=== PATIENT | male | born 1945 | race Caucasian/White ===

== ENCOUNTER 2016-08-17 22:01 | Emergency (ER) | payer OTHER, MEDICAID ==
--- NOTE | 2016-08-17 22:22 | EDPHY ---
H & P HPI/ROS: HPI CHIEF COMPLAINT: Alcohol Intoxication HISTORY OF PRESENT ILLNESS: This patient is a 71-year-old male homeless, daily alcohol use and alcohol abuse, he was found at a bus stop, highly intoxicated with alcohol, he fell forward head strike against concrete. Questionable LOC. Bystanders at the bus stop called 911. It is noted the patient was wearing a very thick hat. Patient denies any complaints however he is highly intoxicated with alcohol. Past Medical History: Varicose veins, daily alcohol use, alcoholism Past Surgical History: Denies significant surgical history Social History: Homeless, daily alcohol use denies illicit drugs or tobacco. Family History: Noncontributory ROS REVIEW OF SYSTEMS: A comprehensive 10 point review of systems is otherwise negative aside from elements mentioned in the history of present illness. Exam Constitutional Intoxicated, triage nursing summary reviewed, vital signs reviewed, Sleepy, smells of alcohol Eyes normal conjunctivae and sclera, horizontal beating nystagmus consistent acute alcohol intoxication, otherwise pupils equal and react to light HENT normal inspection, atraumatic, moist mucus membranes, no epistaxis, neck supple/ no meningismus, no raccoon eyes. Respiratory clear to auscultation bilaterally, normal breath sounds, no respiratory distress, no wheezing. Cardiovascular rate normal, regular rhythm, no murmur, no edema, distal pulses normal. Gastrointestinal soft, non-tender, no rebound, no guarding, normal bowel sounds, no distension, no pulsatile mass. Genitourinary no CVA tenderness. Musculoskeletal no midline vertebral tenderness, full range of motion, no calf swelling, no tenderness of extremities, no meningismus, good pulses, neurovascularly intact. Skin pink, warm, & dry, no rash, skin atraumatic. Neurologic sleepy, intoxicated with alcohol,, alert and oriented x 3, AAOx3, moves all 4 extremities equally, motor intact, sensory intact, CN II-XII intact , , normal vision, normal speech. Psychiatric normal mood/affect. Heme/Lymph/Immune no lymphadenopathy. Differential Diagnosis: Includes but is not limited to in a particular order acute alcohol intoxication, alcohol abuse, dehydration, electrolyte abnormality , nausea vomiting from acute alcohol intoxication Medical Decision Making: patient had a CT scan of his head to rule out significant trauma given that he fell witnessed at a bus stop with head strike as concrete. He is intoxicated alcohol. There is no evidence of significant trauma on exam. Re-evaluation: Breath alcohol is 171. CT scan of the head without IV contrast The results of the study are negative for acute traumatic injury The study was read by Dr. Aldrich. I viewed the images myself on the PACS system. 2325: patient ambulated well throughout the emergency room. PO Challenged well without difficulty. Patient is resting comfortably. CT reviewed no evidence of acute trauma. Patient is safe for discharge with the emergency room. Source: Patient, EMS - Medical/Surgical History Hx Asthma: No Hx Chronic Respiratory Disease: No Hx Diabetes: No Hx Cardiac Disease: No Hx Renal Disease: No Hx Cirrhosis: No Hx Alcoholism: Yes Hx HIV/AIDS: No Hx Splenectomy or Spleen Trauma: No Other PMH: NOT ON PSYCH MEDS: ABILIFY, LAMICTAL. ETOH - Social History Smoking Status: Current every day smoker Constitutional: Initial Vital Signs Temperature (C) 36.3 C 08/17/16 22:39 Heart Rate 72 08/17/16 22:39 Respiratory Rate 18 08/17/16 22:39 Blood Pressure 146/100 H 08/17/16 22:39 O2 Sat (%) 95 08/17/16 22:39 O2 Delivery Mode Room Air Allergies/Adverse Reactions: Penicillins Allergy (Verified 08/17/16 22:38) Home Medications: Medication Instructions Recorded Miscellaneous Medical Supply [NO 03/19/13 HOME MED[facility]] Departure - Departure Disposition: Home, Routine, Self-Care Clinical Impression: Alcoholic intoxication Qualifiers: Complication of substance-induced condition: uncomplicated Qualifier Code: ( F10.120) Alcohol abuse with intoxication, uncomplicated Condition: Good Instructions: Abuse of Alcohol (ED), Alcohol Intoxication (ED) Referrals: Fernando Dexter MD [Primary Care Provider] - As per Instructions
--- NOTE | 2016-08-17 22:59 | CT ---
CT Brain (Without Contrast) at 2235 hours History: EtOH, fall, altered mental status. Comparison: CT December 2015. Technique: Axial computed tomographic images of the brain without contrast. Dose reduction techniques were utilized. Findings: Ventricles, cisterns, and sulci are widened consistent with atrophy. 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 No hydrocephalus, midline shift/herniation, or epidural/subdural hematomas. No acute intraparenchymal hemorrhage or mass effect. Cerebrovascular atherosclerosis. Hypodensities in t he white matter of bilateral cerebral hemispheres. Bone windows demonstrate old nasal bone fractures .. Mild mucosal thickening bilateral ethmoid sinuses. Impression: 1. Moderate atrophy. 2. No acute hemorrhage, hydrocephalus, or mass effect. 3. Cerebrovascular atherosclerosis. 4. 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 No definite acute infarct. 5. Severe microvascular ischemic gliosis. 6. No acute epidural or subdural hematoma. Findings and recommendations discussed with Emergency Department physician, Yovani Rosa MD at 2 255 hour, 08/17/2016. Final report concurs with initial preliminary interpretation.
[2016-08-18 00:01] VITALS: BP 119/75; PULSE 75; RESP 16; TEMP 98.6; O2SAT 90
== END 2016-08-18 00:01 | disposition home or self-care (01) ==
LOC: EDUNIT#
DX: F10.120 Alcohol abuse with intoxication, uncomplicated (principal); F17.200 Nicotine dependence, unspecified, uncomplicated

== ENCOUNTER 2016-08-19 13:17 | Emergency (ER) | payer OTHER, MEDICAID ==
--- NOTE | 2016-08-19 14:42 | EDPHY ---
H & P Time Seen by Provider: 08/19/16 14:23 HPI/ROS: CHIEF COMPLAINT: Toenails 2 long HISTORY OF PRESENT ILLNESS: Has not cut his toenails in over 2 years, came in because they are getting too long and digging into his other toes. REVIEW OF SYSTEMS: No fevers or chills and no redness in the feet. PAST MEDICAL HISTORY: Bipolar disorder, stable. No hallucinations and no suicidal or homicidal ideation Social history: Homeless. General Appearance: Alert and conversant, cooperative. Patient's great toenail is 3 cm long on each toe extending past the distal portion of the nail bed. There is no evidence of cellulitis. No lymphangitis, no redness or drainage, there is a abrasion on the medial surface of the right 2nd toe with a nail is contacting. Emergency Department course/MDM: I used emergency department double action bolt cutters to trim the patient's toenails. Is not clinically have evidence of paronychia or cellulitis. He does have extensive toenail fungus. He is referred to Dr. Dexter for Podiatry referral. Smoking Status: Current every day smoker Constitutional: Initial Vital Signs Temperature (C) 36.4 C 08/19/16 13:22 Heart Rate 92 08/19/16 13:22 Respiratory Rate 14 08/19/16 13:22 Blood Pressure 128/78 H 08/19/16 13:22 O2 Sat (%) 96 08/19/16 13:22 O2 Delivery Mode Room Air Home Medications: Medication Instructions Recorded Miscellaneous Medical Supply [NO 03/19/13 HOME MEDS] MDM/Departure - Depart Disposition: Home, Routine, Self-Care Clinical Impression: Toenail fungus Condition: Good Instructions: Bipolar Disorder (ED) Additional Instructions: Follow-up at 1000 up on tomorrow as scheduled for your bipolar disorder. Referrals: NONE *PRIMARY CARE P,. [Primary Care Provider] - As per Instructions Fernando Dexter MD [Medical Doctor] - As per Instructions Yajaira Rizo DPM [Doctor of Podiatric Medicine] - As per Instructions
[2016-08-19 15:22] VITALS: BP 145/87; PULSE 87; RESP 16; TEMP 98.4; O2SAT 92
== END 2016-08-19 15:22 | disposition home or self-care (01) ==
DX: B35.1 Tinea unguium (principal); F17.200 Nicotine dependence, unspecified, uncomplicated

== ENCOUNTER 2016-10-19 19:08 | Emergency (ER) | payer OTHER, MEDICAID ==
[2016-10-19 19:21] VITALS: O2SAT 92
--- NOTE | 2016-10-19 19:26 | EDPHY ---
H & P Stated Complaint: ETOH Time Seen by Provider: 10/19/16 19:12 HPI/ROS: CHIEF COMPLAINT: Alcohol intoxication HISTORY OF PRESENT ILLNESS: The patient is brought to the emergency department with altered mental status from presumed alcohol intoxication. The patient is unable to provide much history but does have the strong smell of alcohol on his breath. There is no reported history of witnessed trauma. In reviewing the patient's past medical records he has been seen in the emergency department multiple times in the past with alcohol intoxication. He does not appear to have a significant past medical history. REVIEW OF SYSTEMS: A comprehensive 10 point review of systems is unobtainable secondary to intoxication Source: Patient - Personal History Current Tetanus/Diphtheria Vaccine: Unsure Current Tetanus Diphtheria and Acellular Pertussis (TDAP): Unsure - Medical/Surgical History Hx Asthma: No Hx Chronic Respiratory Disease: No Hx Diabetes: No Hx Cardiac Disease: No Hx Renal Disease: No Hx Cirrhosis: No Hx Alcoholism: Yes Hx HIV/AIDS: No Hx Splenectomy or Spleen Trauma: No Other PMH: NOT ON PSYCH MEDS: ABILIFY, LAMICTAL. ETOH - Social History Smoking Status: Current every day smoker - Physical Exam Exam: General Appearance: Somnolent, responds to painful stimuli, nonverbal, alcohol on breath. Head: Normocephalic atraumatic Neck: No step-off or tenderness to palpation Eyes: Pupils equal and round no pallor or injection ENT, Mouth: Mucous membranes moist Respiratory: There are no retractions, lungs are clear to auscultation Cardiovascular: Regular rate and rhythm Gastrointestinal: Abdomen is soft and nontender, no masses, bowel sounds normal Neurological: Withdrawals to pain all 4 extremities, unable to produce a patent cranial nerve exam Skin: Warm and dry, no rashes Musculoskeletal: Neck is supple nontender Extremities: symmetrical, full range of motion Constitutional: Initial Vital Signs Temperature (C) 36.3 C 10/19/16 19:19 Heart Rate 79 10/19/16 19:19 Respiratory Rate 16 10/19/16 19:19 Blood Pressure 125/68 H 10/19/16 19:19 O2 Sat (%) 92 10/19/16 19:19 O2 Delivery Mode Room Air Allergies/Adverse Reactions: No Known Allergies Allergy (Unverified 10/19/16 19:19) Home Medications: Medication Instructions Recorded Miscellaneous Medical Supply [NO 03/19/13 [facility]] Medical Decision Making ED Course/Re-evaluation: I reviewed the patient's past medical records. The patient presents to the ED with alcohol intoxication. The patient was initially quite somnolent and unable to provide additional history. Patient was reexamined at 8:10 p.m.. He is improving in terms of sobriety. The patient denies acute complaints. He does report alcohol intoxication today. The patient is ambulatory to the bathroom with minimal assistance required. Differential Diagnosis: Differential diagnosis considered includes intracranial hemorrhage, alcohol intoxication, hypothermia, metabolic abnormality, trauma Departure - Departure Disposition: [facility] Inpatient Acute Clinical Impression: Alcoholic intoxication Condition: Good Instructions: Alcohol Intoxication (ED) Referrals: [facility] [Outside] - As per Instructions
[2016-10-19 20:55] VITALS: BP 97/57; PULSE 71; RESP 18; TEMP 97.9
== END 2016-10-19 20:55 | disposition home or self-care (01) ==
LOC: EDUNIT#
DX: F10.129 Alcohol abuse with intoxication, unspecified (principal)

== ENCOUNTER 2017-08-15 17:42 | Emergency (ER) | payer OTHER, MEDICAID ==
--- NOTE | 2017-08-15 19:05 | EDPHY ---
H & P Stated Complaint: etoh Time Seen by Provider: 08/15/17 18:28 HPI/ROS: Chief complaint: Alcohol intoxication The history of present illness: This is a 72-year-old male who presents to the emergency department with EMS for evaluation of alcohol intoxication. Patient was attempting is non local bus, he was too intoxicated to step up and fell backwards. This was witnessed and EMS was summoned and he was brought here. On evaluation he admits to drinking alcohol. He denies any discomfort. He has no complaints. Review of systems: Unable to obtain secondary to intoxication - Medical/Surgical History Hx Asthma: No Hx Chronic Respiratory Disease: No Hx Diabetes: No Hx Cardiac Disease: No Hx Renal Disease: No Hx Cirrhosis: No Hx Alcoholism: Yes Hx HIV/AIDS: No Hx Splenectomy or Spleen Trauma: No Other PMH: NOT ON PSYCH MEDS: ABILIFY, LAMICTAL. ETOH - Social History Smoking Status: Current every day smoker - Physical Exam Exam: General Appearance: Alert Eyes: PERRLA ENT: No hemotympanum, no Vogel sign, no raccoon eyes Respiratory: Lungs clear to auscultation bilaterally Cardiac: Regular rate and rhythm. Gastrointestinal: Bowel sounds normal. Abdomen is soft, nondistended, nontender. Neurological: Alert. Strength and sensation intact and symmetrical. Skin: No lesions consistent with acute trauma Musculoskeletal: The head is without crepitus or bony deformity. The spine is without crepitus, bony deformity or step-off. The rest the back is without apparent tenderness. Chest wall intact palpation without crepitus or subcutaneous air. Patient moving all extremities well. Constitutional: Initial Vital Signs Temperature (C) 36.7 C 08/15/17 17:45 Heart Rate 76 08/15/17 17:45 Respiratory Rate 18 08/15/17 17:45 Blood Pressure 106/67 08/15/17 17:45 O2 Sat (%) 96 08/15/17 17:45 O2 Delivery Mode Room Air Allergies/Adverse Reactions: No Known Allergies Allergy (Unverified 10/19/16 19:19) Home Medications: Medication Instructions Recorded NK [No Known Home Meds] 08/15/17 Medical Decision Making ED Course/Re-evaluation: Patient seen under the supervision of my secondary supervising physician Dr. Paulie Amezcua. Patient brought to the emergency room, apparently intoxicated to the point where he can't walk. Reportedly fell backwards. No evidence of trauma. He is observed until he can sober up and then will be discharged to the [facility]. Differential Diagnosis: Included but not limited to alcohol intoxication, alcohol withdrawal, polysubstance abuse Departure - Departure Disposition: Law Enforcement/Court/Custodial Clinical Impression: Alcoholic intoxication Qualifiers: Complication of substance-induced condition: uncomplicated Qualified Code(s): F10.920 - Alcohol use, unspecified with intoxication, uncomplicated Condition: Good Instructions: Alcohol Intoxication (ED) Additional Instructions: Follow-up with a primary care doctor for recheck If you develops any concerning symptoms return to the emergency room for recheck Referrals: Patient,NotPresent [Primary Care Provider] - As per Instructions
[2017-08-15 21:15] VITALS: BP 115/78; PULSE 74; RESP 16; O2SAT 93
[2017-08-15 21:17] VITALS: TEMP 97.9
== END 2017-08-15 21:17 ==
LOC: EDUNIT#
DX: F10.920 Alcohol use, unspecified with intoxication, uncomplicated (principal); F17.200 Nicotine dependence, unspecified, uncomplicated

== ENCOUNTER 2017-10-11 16:25 | Emergency (ER) | payer OTHER, MEDICAID ==
[2017-10-11 16:32] VITALS: BP 160/91; PULSE 60; RESP 18; TEMP 98.2; O2SAT 92
--- NOTE | 2017-10-11 16:39 | EDPHY ---
H & P Smoking Status: Current every day smoker Time Seen by Provider: 10/11/17 16:28 HPI/ROS: CHIEF COMPLAINT: Alcohol intoxication HISTORY OF PRESENT ILLNESS: 72-year-old male presents to the emergency department by ambulance with alcohol intoxication. The patient admits taking 1 pt of vodka today. He does this every day. He states he has never had an alcohol withdrawal seizure. He tells me that he does not want to quit drinking. He has no complaints. No reports of fall or trauma. Denies headache. Denies neck or back pain. Denies chest or difficulty breathing. Denies any URI symptoms. Denies any other drug use. REVIEW OF SYSTEMS: Constitutional: No fever, no chills. Eyes: No double or blurry vision. ENT: No sore throat. Respiratory: No cough, no shortness of breath. Cardiac: No chest pain. Gastrointestinal: No abdominal pain, vomiting or diarrhea. Genitourinary: No dysuria. Musculoskeletal: No neck or back pain. Skin: No rashes. Neurological: No headache. (Loren Farrar) Past Medical/Surgical History: Alcoholism (Loren Farrar) Social History: Homeless (Loren Farrar) Physical Exam: General Appearance: Alert, no distress. Mentating normally and answering questions appropriately. He smells strongly of alcohol with no visible sign trauma to his head. Eyes: Pupils equal and round. Extraocular motions are all intact. ENT: Mouth: Mucous membranes moist. Respiratory: No wheezing, rhonchi, or rales, lungs are clear to auscultation. Cardiovascular: Regular rate and rhythm. Gastrointestinal: Abdomen is soft and nontender, no masses, no rebound or guarding, bowel sounds normal. Neurological: Alert and oriented x 3, cranial nerves II through XII grossly intact Skin: Warm and dry, no rashes. Musculoskeletal: Nontender to palpate along the cervical, thoracic or lumbar spine. Neck is supple. Extremities: Full range of motion and no peripheral edema. Psychiatric: Patient is oriented X 3, there is no agitation. (Loren Farrar) Constitutional: Initial Vital Signs Temperature (C) 36.8 C 10/11/17 16:28 Heart Rate 60 10/11/17 16:28 Respiratory Rate 18 10/11/17 16:28 Blood Pressure 160/91 H 10/11/17 16:28 O2 Sat (%) 92 10/11/17 16:28 O2 Delivery Mode Room Air Allergies/Adverse Reactions: No Known Allergies Allergy (Unverified 10/19/16 19:19) Home Medications: Medication Instructions Recorded NK [No Known Home Meds] 08/15/17 Medical Decision Making ED Course/Re-evaluation: 72-year-old homeless male presents emergency department with acute alcohol intoxication. I do not think imaging studies are indicated. The patient is able to ambulate to the restroom. He is drinking some juice. [facility]. (Loren Farrar) I did not see this patient while he was in the emergency department. However his care was discussed with the PA while the patient was in the department. I agree with treatment plan and manage (Mor Soto) Differential Diagnosis: Altered mental status including but not limited to hypoglycemia, infectious process, electrolyte abnormality, head injury and intoxicants. (Loren Farrar) Departure - Departure Disposition: Home, Routine, Self-Care Clinical Impression: Alcoholic intoxication Qualifiers: Complication of substance-induced condition: uncomplicated Qualified Code(s): F10.920 - Alcohol use, unspecified with intoxication, uncomplicated Condition: Good Instructions: Alcohol Intoxication (ED) Additional Instructions: You should drink alcohol in excess. You are being discharged to the addiction recovery Center. Referrals: [facility] [Outside] - As per Instructions
== END 2017-10-11 18:28 | disposition home or self-care (01) ==
LOC: EDBD → EDUNIT#
DX: F10.920 Alcohol use, unspecified with intoxication, uncomplicated (principal); F17.200 Nicotine dependence, unspecified, uncomplicated

== ENCOUNTER 2018-01-17 17:15 | Emergency (ER) | payer OTHER, MEDICAID ==
--- NOTE | 2018-01-17 17:52 | EDPHY ---
H & P Time Seen by Provider: 01/17/18 17:47 HPI/ROS: CHIEF COMPLAINT: Altered mental status can't walk HISTORY OF PRESENT ILLNESS: [place] called 911 cause the patient was sleeping , he admits to vodka and can't walk. He has no medical complaints. REVIEW OF SYSTEMS: Eye: no change in vision ENT: no sore throat Cardiac: no chest pain or syncope Pulmonary: no cough or SOB Abdomen: no vomiting, diarrhea, abdominal pain Musculoskeletal: no back pain Skin: no rash Neuro: no headache Constitutional: no fever : no urinary symptoms A comprehensive 10 point review of systems is otherwise negative aside from elements mentioned in the history of present illness. PAST MEDICAL HISTORY: Previous ED visit 10/11/2017 for alcoholism Social history: Recent vodka intake General Appearance: Sleepy but awakens to voice. Eyes: No scleral icterus. Pupils equal and reactive. ENT, Mouth: No tongue laceration or abrasion. Respiratory: Normal respiratory effort, breath sounds equal, lungs are clear to auscultation. Cardiovascular: Regular rate and rhythm. Gastrointestinal: Abdomen is soft and non tender. Neurological: Slurred speech but responds to voice, moves all 4 extremities, face symmetric. Skin: No lacerations. Musculoskeletal: No spinal or extremity deformity or tenderness. Psychiatric: Deferred due to intoxication. Emergency Department course/MDM: Glucose 91 by EMS. Plan for serial exams. 1928: Ambulatory, not ataxic, no medical complaints, stable for discharge to detox. Smoking Status: Current every day smoker Constitutional: Initial Vital Signs Temperature (C) 36.6 C 01/17/18 17:20 Heart Rate 73 01/17/18 17:20 Respiratory Rate 16 01/17/18 17:20 Blood Pressure 141/94 H 01/17/18 17:20 O2 Sat (%) 93 01/17/18 17:20 O2 Delivery Mode Room Air Allergies/Adverse Reactions: No Known Allergies Allergy (Unverified 10/19/16 19:19) Home Medications: Medication Instructions Recorded NK [No Known Home Meds] 08/15/17 Medical Decision Making Differential Diagnosis: Differential diagnosis considered for altered mental status including but not limited to hypoglycemia, infectious process, electrolyte abnormality, head injury and intoxicants. - Data Points Medications Given: Discontinued Medications Chlordiazepoxide (Librium 25 Mg Prepack#6) 1 btl TAKEHOME EDNOW ONE Stop: 01/17/18 19:20 Last Admin: 01/17/18 19:22 Dose: 1 btl Departure - Departure Disposition: Home, Routine, Self-Care Clinical Impression: Alcoholic intoxication Qualifiers: Complication of substance-induced condition: uncomplicated Qualified Code(s): F10.920 - Alcohol use, unspecified with intoxication, uncomplicated Condition: Good Instructions: Chlordiazepoxide (By mouth), Alcohol Intoxication (ED) Referrals: [facility] [Outside] - As per Instructions [facility],. [Clinic] - As per Instructions
[2018-01-17] MEDS ORDERED: CHLORDIAZEPOXIDE 25MG PREPK#6 BTL TAKEHOME ONE (19:19)
[2018-01-17 19:30] VITALS: BP 138/72
== END 2018-01-17 19:30 | disposition home or self-care (01) ==
LOC: EDUNIT#
DX: F10.920 Alcohol use, unspecified with intoxication, uncomplicated (principal); F17.200 Nicotine dependence, unspecified, uncomplicated

== ENCOUNTER 2018-04-24 18:57 | Emergency (ER) | payer OTHER, MEDICAID ==
--- NOTE | 2018-04-24 19:04 | EDPHY ---
H & P Time Seen by Provider: 04/24/18 19:01 HPI/ROS: HPI: This is a 73-year-old male who presents with Chief Complaint: Alcohol intoxication Location: body Quality: Alcohol intoxication Duration: Unknown Signs and Symptoms: No radiation, no LOC, no amnesia, no nausea, no vomiting, no abdominal pain, no back pain, no seizure activity Timing: Acute on chronic Severity: moderate Context: Patient is brought in by EMS for alcohol intoxication while at [facility]. Patient drink a pt of vodka today and was sitting on the bar stool when he lost his balance and fell off of the bar stool landing on his buttocks. Denies LOC, head injury, neck pain, nausea, vomiting, dizziness, amnesia. Patient was able to pull himself up to a standing position using the bar stool. He was unable to walk without assistance and EMS was unable to taken to the [facility] sort they brought him to the emergency room. Patient is cooperative upon arrival and denies any complaints. Modifying Factors: None Comment: ROS: A comprehensive 10 system review of systems is otherwise negative aside from elements mentioned in the history of present illness. MEDICAL/SURGICAL/SOCIAL HISTORY: Medical history: Alcohol abuse, hypertension Surgical history: Denies Social history: Retired. Current every day smoker Family history noncontributory. CONSTITUTIONAL: Intoxicated elderly male who smells of alcohol and is slurring his words, untidy, awake and alert, no obvious distress HEENT: Atraumatic and normocephalic. NECK: supple, no midline tenderness, flexion 45 degrees, extension 45 degrees, right and left lateral flexion 45 degrees. No meningismus. Cardiovascular: Normal S1/S2, regular rate, regular rhythm, without murmur rub or gallop. PULMONARY/CHEST: Symmetrical and nontender. no crepitus. Clear to auscultation bilaterally. Good air movement. No accessory muscle usage. ABDOMEN: Soft, nondistended, nontender, no ecchymosis. BACK: No midline tenderness, no paraspinous spasm, deep tendon reflexes 2/2, no pain with straight leg raise, No foot drop. Achilles reflexes are equal bilaterally. EXTREMITIES: 2/2 pulses, strength 5/5, DIP/PIP/MCP flexion/extension intact with good light touch sensation. no deformities, no clubbing, no cyanosis or edema. NEUROLOGICAL: no focal neuro deficits. GCS 15. Light touch sensation intact. SKIN: Warm and dry, no erythema. no rash. Good capillary refill. Source: EMS Exam Limitations: Intoxication - Medical/Surgical History Hx Asthma: No Hx Chronic Respiratory Disease: No Hx Diabetes: No Hx Cardiac Disease: No Hx Renal Disease: No Hx Cirrhosis: No Hx Alcoholism: Yes Hx HIV/AIDS: No Hx Splenectomy or Spleen Trauma: No Other PMH: NOT ON PSYCH MEDS: ABILIFY, LAMICTAL. ETOH - Social History Smoking Status: Current every day smoker Constitutional: Initial Vital Signs Temperature (C) 36.8 C 04/24/18 19:03 Heart Rate 66 04/24/18 19:03 Respiratory Rate 16 04/24/18 19:03 Blood Pressure 127/84 H 04/24/18 19:03 O2 Sat (%) 93 04/24/18 19:03 O2 Delivery Mode Room Air O2 (L/minute) 2 Allergies/Adverse Reactions: No Known Allergies Allergy (Unverified 10/19/16 19:19) Home Medications: Medication Instructions Recorded NK [No Known Home Meds] 08/15/17 Medical Decision Making ED Course/Re-evaluation: 1900: Placed on detainer. Vital signs reviewed and stable upon arrival. No indication based on nexus protocol for head CT or cervical CT imaging. Patient is currently without complaints and compliant. Will continue to monitor and reassessed once patient is more sober. Once patient able to ambulate without deficits he will be discharged to the [facility] with Librium prepack. 2300: Patient ambulating without assistance to the restroom. Patient agrees to be discharged to the [facility] with Librium prepack. This patient was seen under the supervision of my secondary supervising physician. I evaluated care for this patient independently. Discussed this patient with Dr. Kim. Differential Diagnosis: Differential diagnosis includes but is not limited to alcohol intoxication. - Data Points Medications Given: Discontinued Medications Chlordiazepoxide (Librium 25 Mg Prepack#6) 1 btl TAKEHOME EDNOW ONE Stop: 04/24/18 23:00 Last Admin: 04/24/18 23:11 Dose: 1 btl Departure - Departure Disposition: Home, Routine, Self-Care Clinical Impression: Alcohol intoxication in active alcoholic without complication Condition: Good Instructions: Chlordiazepoxide (By mouth), Abuse of Alcohol (ED), Alcohol Use Disorder (ED) Additional Instructions: Please refrain from using alcohol excessively. Referrals: [facility],. [Clinic] - As per Instructions [facility] [Outside] - As per Instructions
[2018-04-24] MEDS ORDERED: CHLORDIAZEPOXIDE 25MG PREPK#6 BTL TAKEHOME ONE (22:59)
[2018-04-24 23:17] VITALS: BP 138/71
== END 2018-04-24 23:17 | disposition home or self-care (01) ==
LOC: EDUNIT#
DX: F10.129 Alcohol abuse with intoxication, unspecified (principal); I10 Essential (primary) hypertension; F17.200 Nicotine dependence, unspecified, uncomplicated

== ENCOUNTER 2018-06-21 20:48 | Emergency (ER) | payer OTHER, MEDICAID ==
--- NOTE | 2018-06-21 21:03 | EDPHY ---
H & P Stated Complaint: etoh Source: Patient, EMS - Personal History Current Tetanus/Diphtheria Vaccine: Yes Current Tetanus Diphtheria and Acellular Pertussis (TDAP): Yes - Medical/Surgical History Hx Asthma: No Hx Chronic Respiratory Disease: No Hx Diabetes: No Hx Cardiac Disease: No Hx Renal Disease: No Hx Cirrhosis: No Hx Alcoholism: Yes Hx HIV/AIDS: No Hx Splenectomy or Spleen Trauma: No Other PMH: NOT ON PSYCH MEDS: ABILIFY, LAMICTAL. ETOH - Social History Smoking Status: Current every day smoker Time Seen by Provider: 06/21/18 20:51 HPI/ROS: CHIEF COMPLAINT: Intoxicated, unable to walk HISTORY OF PRESENT ILLNESS: The patient is brought in by by paramedics as he is intoxicated and unable to walk. The patient is currently homeless and staying at the [facility]. He does report drinking heavily today. He has no history of any trauma or fall. The patient denies any acute medical complaints. He states his past medical history is significant only for varicose veins. The patient takes no regular medications. The patient has no acute complaints aside from being intoxicated. REVIEW OF SYSTEMS: A comprehensive 10 point review of systems is otherwise negative aside from elements mentioned in the history of present illness. (Karthik Teague) - Physical Exam Exam: General Appearance: Elderly male, cooperative, alcohol on breath Eyes: Pupils equal and round no pallor or injection ENT, Mouth: Mucous membranes moist Respiratory: There are no retractions, lungs are clear to auscultation Cardiovascular: Regular rate and rhythm Gastrointestinal: Abdomen is soft and nontender, no masses, bowel sounds normal Neurological: 5/5 strength all 4 extremities, GCS 15 Skin: Warm and dry, no rashes Musculoskeletal: Neck is supple nontender Extremities: symmetrical, full range of motion Psychiatric: Patient is oriented X 3, there is no agitation (Karthik Teague) Constitutional: Initial Vital Signs Temperature (C) 36.5 C 06/21/18 20:53 Heart Rate 75 06/21/18 20:53 Respiratory Rate 16 06/21/18 20:53 Blood Pressure 166/115 H 06/21/18 20:53 O2 Sat (%) 97 06/21/18 20:53 O2 Delivery Mode Room Air Allergies/Adverse Reactions: No Known Allergies Allergy (Unverified 10/19/16 19:19) Home Medications: Medication Instructions Recorded NK [No Known Home Meds] 08/15/17 Medical Decision Making ED Course/Re-evaluation: Patient presents to the ED with alcohol intoxication. The patient has no signs of trauma on exam. The patient's vital signs are stable. The patient has no acute medical complaints. Plan will be for sobriety in the emergency department. The patient will be transferred to the [facility] for further sobering when he is able to walk with assistance. Plan for serial exams while awaiting sobriety in ED. The patient will be turned over to Dr. Rosa at shift change pending further soberity. (Karthik Teague) 0100: Patient ambulated well throughout the patient ambulated well throughout the emergency room with a steady gait. Clinically sober. In no acute distress. Safe for discharge to the [facility]. (Yovani Rosa) Differential Diagnosis: Differential diagnosis considered includes alcohol intoxication, occult trauma, pneumonia, dehydration (Karthik Teague) - Data Points Medications Given: Discontinued Medications Chlordiazepoxide (Librium 25 Mg Prepack#6) [facility] Stop: 06/21/18 23:30 Last Admin: 06/21/18 23:44 Dose: 1 btl Departure - Departure Disposition: Home, Routine, Self-Care Clinical Impression: Alcoholic intoxication Qualifiers: Complication of substance-induced condition: uncomplicated Qualified Code(s): F10.920 - Alcohol use, unspecified with intoxication, uncomplicated Condition: Good Instructions: Chlordiazepoxide/Clidinium (By mouth), Alcohol Intoxication (ED) Referrals: [facility] [Outside] - As per Instructions
[2018-06-21] MEDS ORDERED: CHLORDIAZEPOXIDE 25MG PREPK#6 BTL TAKEHOME ONE (23:29)
[2018-06-21 23:54] VITALS: BP 160/90
== END 2018-06-21 23:53 | disposition home or self-care (01) ==
LOC: EDUNIT#
DX: F10.920 Alcohol use, unspecified with intoxication, uncomplicated (principal)

== ENCOUNTER 2018-07-05 16:41 | Emergency (ER) | payer OTHER, MEDICAID ==
--- NOTE | 2018-07-05 16:49 | EDPHY ---
H & P Time Seen by Provider: 07/05/18 16:42 HPI/ROS: CHIEF COMPLAINT: Can't walk HISTORY OF PRESENT ILLNESS: Please called EMS when they found the patient unresponsive. He admits to drinking at least a pt of alcohol today. No trauma. No other medical complaints. Drinking enough that he can't walk is a known problem for the patient. REVIEW OF SYSTEMS: Eye: no change in vision ENT: no sore throat Cardiac: no chest pain or syncope Pulmonary: no cough or SOB Abdomen: no vomiting, diarrhea, abdominal pain Musculoskeletal: no back pain Skin: no rash Neuro: no headache Constitutional: no fever : no urinary symptoms A comprehensive 10 point review of systems is otherwise negative aside from elements mentioned in the history of present illness. PAST MEDICAL HISTORY: Hypertension alcoholism Social history: Recent alcohol, homeless General Appearance: Sleepy but opens eyes to voice and cooperative with the examination. Eyes: No scleral icterus. Pupils equal round reactive extraocular motion intact. ENT, Mouth: Normal mucous membranes. No external evidence of head trauma. Respiratory: Normal respiratory effort, breath sounds equal, lungs are clear to auscultation. Cardiovascular: Regular rate and rhythm. Gastrointestinal: Abdomen is soft and non tender. Neurological: Patient is sleepy, opens eyes to voice, face symmetric. Able to lift each leg independently off the bed, good screen vent binder strength bilaterally. Skin: No lacerations or bruising. Musculoskeletal: No extremity or spinal deformity or tenderness. Psychiatric: Not agitated. Emergency Department course/MDM: Pre-hospital glucose 103. Presentation consistent with self-described alcohol ingestion. This point I think that intracranial bleed or subdural or epidural or hypoglycemia or seizure are all unlikely. Plan serial examinations until stable for detox. 1825: ambulatory, no medical complaints, stable to go to detox. Smoking Status: Current every day smoker Constitutional: Initial Vital Signs Temperature (C) 36.2 C 07/05/18 16:41 Heart Rate 57 L 07/05/18 16:41 Respiratory Rate 16 07/05/18 16:41 Blood Pressure 129/78 H 07/05/18 16:41 O2 Sat (%) 96 07/05/18 16:41 O2 Delivery Mode Room Air Allergies/Adverse Reactions: No Known Allergies Allergy (Unverified 10/19/16 19:19) Home Medications: Medication Instructions Recorded NK [No Known Home Meds] 08/15/17 Departure - Departure Disposition: Home, Routine, Self-Care Clinical Impression: Alcoholic intoxication Qualifiers: Complication of substance-induced condition: uncomplicated Qualified Code(s): F10.920 - Alcohol use, unspecified with intoxication, uncomplicated Condition: Good Instructions: Alcohol Intoxication (ED) Referrals: [facility],. [Clinic] - As per Instructions
[2018-07-05] MEDS ORDERED: CHLORDIAZEPOXIDE 25MG PREPK#6 BTL TAKEHOME ONE (18:29)
[2018-07-05 19:14] VITALS: BP 112/67
== END 2018-07-05 20:36 | disposition home or self-care (01) ==
LOC: EDUNIT#
DX: F10.920 Alcohol use, unspecified with intoxication, uncomplicated (principal); Z59.0 Homelessness

== ENCOUNTER 2018-07-24 17:47 | Emergency (ER) | payer OTHER, MEDICAID ==
[2018-07-24] MEDS ORDERED: NS 1,000 ML IV ONE (17:54)
[2018-07-24] MEDS ORDERED: ONDANSETRON 4 MG/2 ML VIAL IVP ONE (17:54)
--- NOTE | 2018-07-24 17:57 | EDPHY ---
H & P Time Seen by Provider: 07/24/18 17:54 HPI/ROS: HPI: This is a 73-year-old male who presents with Chief Complaint: Alcohol intoxication, [facility] Location: body Quality: Alcohol intoxication Duration: Unknown Signs and Symptoms: Timing: Acute on chronic Severity: Moderate Context: Patient has a history of alcohol abuse presents via EMS as a bystander saw him slumped over at the bus stop. When EMS arrived patient was slurring his words and required maximum assistance to stand on his feet. [facility] Police were called and patient was placed on [facility] hold. Initial fingerstick was 101 and vital stable. IV access, laboratory studies drawn and in left AC, IV fluids 500 cc given. Patient currently has no complaints and keeps falling back asleep. Modifying Factors: None Comment: ROS: A comprehensive 10 system review of systems is otherwise negative aside from elements mentioned in the history of present illness. MEDICAL/SURGICAL/SOCIAL HISTORY: Medical history: Hypertension, alcohol abuse Surgical history: Denies Social history: Homeless. Current every day smoker. Family history noncontributory. CONSTITUTIONAL: Intoxicated, smells heavily of alcohol, sleepy, elderly white male with a white wilkins, lying on left side, awake and alert, no obvious distress HEENT: Atraumatic and normocephalic, PERRL, EOMI. Nares patent; no rhinorrhea; no nasal mucosal edema. Tympanic membranes clear. Oropharynx clear, no exudate and moist pink mucosa. Airway patent. No lymphadenopathy. No meningismus. Cardiovascular: Normal S1/S2, regular rate, regular rhythm, without murmur rub or gallop. PULMONARY/CHEST: Symmetrical and nontender. Clear to auscultation bilaterally. Good air movement. No accessory muscle usage. ABDOMEN: Soft, nondistended, nontender, no rebound, no guarding, no peritoneal signs, no masses or organomegaly. No CVAT. EXTREMITIES: 2/2 pulses, strength 5/5, no deformities, no clubbing, no cyanosis or edema. NEUROLOGICAL: no focal neuro deficits. Slurring words. Follows simple commands with constant prompting. SKIN: Warm and dry, no erythema. no rash. Good capillary refill. Source: Patient, RN/MD, EMS, Old records Exam Limitations: Intoxication - Medical/Surgical History Hx Asthma: No Hx Chronic Respiratory Disease: No Hx Diabetes: No Hx Cardiac Disease: No Hx Renal Disease: No Hx Cirrhosis: No Hx Alcoholism: Yes Hx HIV/AIDS: No Hx Splenectomy or Spleen Trauma: No Other PMH: ETOH abuse, HTN - Social History Smoking Status: Current every day smoker Constitutional: Initial Vital Signs Heart Rate 65 07/24/18 18:42 Respiratory Rate 16 07/24/18 18:42 Blood Pressure 130/83 H 07/24/18 18:42 O2 Sat (%) 94 07/24/18 18:42 O2 Delivery Mode Room Air Allergies/Adverse Reactions: No Known Allergies Allergy (Unverified 10/19/16 19:19) Home Medications: Medication Instructions Recorded NK [No Known Home Meds] 08/15/17 Medical Decision Making ED Course/Re-evaluation: Vital signs reviewed and initial temperature was 34.5C. Bear hugger placed. Placed on residential monitor. Serum ethanol level ordered Given 1 L normal saline and IV Zofran 4 mg Plan is to continue to monitor and once more sober and able to ambulate without assistance will be discharged to the [facility]. Patient does not meet M1 hold criteria 2225: Notified by RN that patient ambulating to the bathroom without difficulty. Patient is appropriate for discharge to the [facility]. Librium prepack provided. This patient was seen under the supervision of my secondary supervising physician. I evaluated care for this patient with attending. Discussed this patient with Dr. Teague who did see the patient. Differential Diagnosis: Altered mental status including but not limited to hypoglycemia, infectious process, electrolyte abnormality, head injury and intoxicants. - Data Points Medications Given: Discontinued Medications Chlordiazepoxide (Librium 25 Mg Prepack#6) 1 btl TAKEHOME EDNOW ONE Stop: 07/24/18 22:24 Last Admin: 07/24/18 22:33 Dose: 1 btl Sodium Chloride (Ns) 1,000 mls @ 0 mls/hr IV EDNOW ONE; Wide Open PRN Reason: Protocol Stop: 07/24/18 17:55 Last Admin: 07/24/18 18:54 Dose: 1,000 mls Ondansetron HCl (Zofran) 4 mg IVP EDNOW ONE Stop: 07/24/18 17:55 Last Admin: 07/24/18 18:54 Dose: 4 mg Departure - Departure Disposition: Home, Routine, Self-Care Clinical Impression: Alcohol abuse Alcohol intoxication Qualifiers: Complication of substance-induced condition: uncomplicated Qualified Code(s): F10.920 - Alcohol use, unspecified with intoxication, uncomplicated Condition: Fair Instructions: Chlordiazepoxide/Clidinium (By mouth), Alcohol Intoxication (ED) , Abuse of Alcohol (ED) Additional Instructions: Please refrain from drinking alcohol excessively. Patient is medically clear for discharge to the [facility]. Referrals: [facility] [Outside] - As per Instructions [facility],. [Clinic] - As per Instructions
[2018-07-24] MEDS ORDERED: CHLORDIAZEPOXIDE 25MG PREPK#6 BTL TAKEHOME ONE (22:23)
[2018-07-24 22:40] VITALS: BP 138/90
== END 2018-07-24 22:38 | disposition home or self-care (01) ==
LOC: EDUNIT# → EDBD
DX: F10.920 Alcohol use, unspecified with intoxication, uncomplicated (principal); E86.9 Volume depletion, unspecified
CPT/HCPCS: 96361; 96374; 99284; J2405

== ENCOUNTER 2018-08-29 20:08 | Emergency (ER) | payer OTHER, MEDICAID ==
--- NOTE | 2018-08-29 20:13 | EDPHY ---
H & P Time Seen by Provider: 08/29/18 20:10 HPI/ROS: HPI: This is a 73-year-old male who presents with Chief Complaint: Alcohol intoxication, [facility] hold Location: body Quality: Alcohol intoxication Duration: Unknown Signs and Symptoms: No homicidal ideation, no suicidal ideation, no hallucinations, no tactile or perceptual disturbances Timing: Acute on chronic Severity: Moderate Context: Patient presents accompanied by [facility] Police on [facility] hold. He was found at the [facility] bus stop, passed out. He was unable to ambulate without moderate assistance. He reports that he drank a pt of vodka today. He is willing to go to the [facility]. He reports that he has not had alcohol withdrawal seizures. He has a couple cousins in the area. Patient currently denies any chest pain, shortness of breath, abdominal pain, nausea, vomiting. He reports that he has poor circulation in his feet. Modifying Factors: Comment: ROS: A comprehensive 10 system review of systems is otherwise negative aside from elements mentioned in the history of present illness. MEDICAL/SURGICAL/SOCIAL HISTORY: Medical history: Alcoholism, hypertension Surgical history: Denies Social history: Smoker. Alcohol abuse. Family history noncontributory. CONSTITUTIONAL: Untidy, intoxicated, cooperative and polite, elderly white male , awake and alert, no obvious distress HEENT: Atraumatic and normocephalic, PERRL, EOMI. Nares patent; no rhinorrhea; no nasal mucosal edema. Tympanic membranes clear. Oropharynx clear, no exudate and moist pink mucosa. White wilkins noted. Airway patent. No lymphadenopathy. No meningismus. Cardiovascular: Normal S1/S2, regular rate, regular rhythm, without murmur rub or gallop. PULMONARY/CHEST: Symmetrical and nontender. Clear to auscultation bilaterally. Good air movement. No accessory muscle usage. ABDOMEN: Soft, nondistended, nontender, no rebound, no guarding, no peritoneal signs, no masses or organomegaly. No CVAT. EXTREMITIES: 2/2 pulses, strength 5/5, no deformities, no clubbing, no cyanosis or edema. NEUROLOGICAL: no focal neuro deficits. GCS 15. SKIN: Warm and dry, no erythema. no rash. Good capillary refill. Source: Patient, Police Exam Limitations: Intoxication - Medical/Surgical History Hx Asthma: No Hx Chronic Respiratory Disease: No Hx Diabetes: No Hx Cardiac Disease: No Hx Renal Disease: No Hx Cirrhosis: No Hx Alcoholism: Yes Hx HIV/AIDS: No Hx Splenectomy or Spleen Trauma: No Other PMH: ETOH abuse, HTN - Social History Smoking Status: Current every day smoker Constitutional: Initial Vital Signs Temperature (C) 36.3 C 08/29/18 20:08 Heart Rate 60 08/29/18 20:08 Respiratory Rate 16 08/29/18 20:08 Blood Pressure 141/97 H 08/29/18 20:08 O2 Sat (%) 94 08/29/18 20:08 O2 Delivery Mode Room Air Allergies/Adverse Reactions: No Known Allergies Allergy (Unverified 10/19/16 19:19) Home Medications: Medication Instructions Recorded NK [No Known Home Meds] 08/15/17 Medical Decision Making ED Course/Re-evaluation: Vital signs reviewed and stable upon arrival. Agree with [facility] hold. Continue to monitor until patient becomes more sober. 2340: Notified by RN that patient walking back and forth to the bathroom without assistance or ataxia. Patient will be discharged to the [facility] with Librium prepack. No signs of delirium tremens, alcohol withdrawal seizures. This patient was seen under the supervision of my secondary supervising physician. I evaluated care for this patient independently. Discussed this patient with Dr. Teague who did not see the patient. Differential Diagnosis: Altered mental status including but not limited to hypoglycemia, infectious process, electrolyte abnormality, head injury and intoxicants. Departure - Departure Disposition: Home, Routine, Self-Care Clinical Impression: Alcoholic intoxication without complication Condition: Good Instructions: Abuse of Alcohol (ED) Additional Instructions: Please refrain from drinking alcohol excessively. Referrals: [facility] [Outside] - As per Instructions [facility] [Outside] - As per Instructions
[2018-08-29] MEDS ORDERED: CHLORDIAZEPOXIDE 25MG PREPK#6 BTL TAKEHOME ONE ×2 (23:30→23:36)
[2018-08-29 23:57] VITALS: BP 156/106
== END 2018-08-29 23:56 | disposition home or self-care (01) ==
LOC: EDUNIT#
DX: F10.920 Alcohol use, unspecified with intoxication, uncomplicated (principal); I10 Essential (primary) hypertension; F17.200 Nicotine dependence, unspecified, uncomplicated

== ENCOUNTER 2018-10-11 17:49 | Emergency (ER) | payer OTHER, MEDICAID ==
--- NOTE | 2018-10-11 18:46 | EDPHY ---
H & P Time Seen by Provider: 10/11/18 17:50 HPI/ROS: CHIEF COMPLAINT: Alcohol abuse HISTORY OF PRESENT ILLNESS: The patient is a 73-year-old male with a history of alcohol abuse the presents emergency department toxic added. Per report, the patient was drinking with a friend. He drank a large amount of alcohol. He denies any recent trauma or fall. He has no headache. No chest pain or shortness of breath. REVIEW OF SYSTEMS: Unable to obtain due the patient's intoxicated appearing mental status Past Medical/Surgical History: Includes alcohol abuse Smoking Status: Current every day smoker Physical Exam: Vitals noted GENERAL: Intoxicated., in no acute distress, alert. HEENT: Eyes normal to inspection, normal pharynx, no signs of dehydration. Protecting airway. NECK: Normal, supple. RESPIRATORY: Clear to auscultation bilaterally, no rales, rhonchi or wheezing. CVS: Regular rate and rhythm, no rubs, murmurs, or gallops. ABDOMEN: Soft, nontender, nondistended, no organomegaly. BACK: Normal to inspection, no CVA tenderness. SKIN: Normal color, no rash, warm, dry. No pallor. EXTREMITIES: No pedal edema, no calf tenderness, no Homans sign or cords, no joint swelling. NEURO/PSYCH: Intoxicated appearing, normal motor sensory exam. No obvious cranial nerve deficit. Constitutional: Initial Vital Signs Temperature (C) 36.8 C 10/11/18 17:50 Heart Rate 65 10/11/18 17:50 Respiratory Rate 16 10/11/18 17:50 Blood Pressure 116/71 10/11/18 17:50 O2 Sat (%) 93 10/11/18 17:50 O2 Delivery Mode Nasal Cannula O2 (L/minute) 2 Allergies/Adverse Reactions: No Known Allergies Allergy (Verified 10/11/18 17:50) Home Medications: Medication Instructions Recorded NK [No Known Home Meds] 08/15/17 Medical Decision Making ED Course/Re-evaluation: The patient was observed in the emergency department. He was rechecked on numerous occasions. Pt is signed out to Dr. Waller at change of shift. Differential Diagnosis: My differential includes but is not limited to alcohol intoxication, drug abuse , closed-head injury, subarachnoid hemorrhage, subdural hematoma, epidural hematoma, dehydration Departure - Departure Disposition: Home, Routine, Self-Care Clinical Impression: Alcoholic intoxication Qualifiers: Complication of substance-induced condition: uncomplicated Qualified Code(s): F10.920 - Alcohol use, unspecified with intoxication, uncomplicated Condition: Good Instructions: Alcohol Intoxication (ED) Additional Instructions: Return with increasing headache, weakness, numbness or any other concerns. Slowly decrease your alcohol intake. Referrals: [facility],. [Clinic] - 5-7 days, call for appt.
[2018-10-11 20:38] VITALS: BP 112/69
[2018-10-11] MEDS ORDERED: CHLORDIAZEPOXIDE 25MG PREPK#6 BTL TAKEHOME ONE (22:15)
== END 2018-10-11 22:19 | disposition home or self-care (01) ==
LOC: EDUNIT#
DX: F10.920 Alcohol use, unspecified with intoxication, uncomplicated (principal); F17.200 Nicotine dependence, unspecified, uncomplicated

== ENCOUNTER 2018-11-02 19:05 | Emergency (ER) | payer OTHER, MEDICAID ==
--- NOTE | 2018-11-02 22:15 | EDPHY ---
H & P Time Seen by Provider: 11/02/18 19:07 HPI/ROS: CHIEF COMPLAINT: Alcohol intoxication HISTORY OF PRESENT ILLNESS: 73-year-old gentleman well known to the emergency department with a history of alcohol abuse presents to the emergency department after being found by a bus stop, unable to walk. Patient states he was drinking heavily today. Drinks vodka. Smoker. No illicit drug use. Denies any medical complaints. Denies any chest pain, shortness of breath, fevers, chills, vomiting, diarrhea, headache, or lightheadedness. REVIEW OF SYSTEMS: A comprehensive 10 system review of systems was reviewed and is otherwise negative aside from elements mentioned in the history of present illness and medical decision making. PAST MEDICAL HISTORY: Alcohol abuse. SOCIAL HISTORY: Smoker. Homeless. VITAL SIGNS Reviewed by me. GENERAL: Disheveled, cooperative. No acute distress. HEENT: Atraumatic. Eyes: No icterus, no injection. Mouth: moist mucous membranes. No erythema or lesions. Neck: supple with no adenopathy. LUNGS: Somewhat diminished throughout, no wheezes. CARDIAC: Regular rate and rhythm, no rubs, murmurs or gallops. ABDOMEN: Soft, nontender, nondistended, bowel sounds normal. BACK: No CVA tenderness. EXTREMITIES: No trauma. No edema. Range of motion is normal throughout. NEURO: Alert and oriented, grossly nonfocal. No tremor. SKIN: Warm and dry, no rash. PSYCHIATRIC: Normal mentation, no agitation. Smoking Status: Current every day smoker Constitutional: Initial Vital Signs Temperature (C) 36.6 C 11/02/18 19:10 Heart Rate 66 11/02/18 19:10 Respiratory Rate 16 11/02/18 19:10 Blood Pressure 135/91 H 11/02/18 19:10 O2 Sat (%) 94 11/02/18 19:10 O2 Delivery Mode Room Air Allergies/Adverse Reactions: No Known Allergies Allergy (Verified 11/02/18 19:12) Home Medications: Medication Instructions Recorded NK [No Known Home Meds] 08/15/17 Medical Decision Making ED Course/Re-evaluation: 73-year-old gentleman presents with history of being intoxicated and unable to ambulate. Patient was observed in the emergency department. He was ambulatory without assistance at 11:00 p.m. He was discharged to the [facility]. Differential Diagnosis: After the history was obtained and physical exam performed, the following differential for the patient's altered mental status was considered included but was not limited to hypoglycemia, electrolyte disturbances, intracranial hemorrhage, drug or alcohol intoxication, polysubstance abuse. - Data Points Medications Given: Discontinued Medications Chlordiazepoxide (Librium 25 Mg Prepack#6) 1 btl TAKEHOME EDNOW ONE Stop: 11/02/18 22:49 Last Admin: 11/02/18 22:56 Dose: 1 btl Departure - Departure Disposition: Home, Routine, Self-Care Clinical Impression: Alcoholic intoxication Qualifiers: Complication of substance-induced condition: uncomplicated Qualified Code(s): F10.920 - Alcohol use, unspecified with intoxication, uncomplicated Condition: Good Instructions: Chlordiazepoxide/Clidinium (By mouth), Abuse of Alcohol (ED) Additional Instructions: Do not drinking excessive quantities of alcohol. Referrals: Patient,NotPresent [Unknown] - As per Instructions
[2018-11-02] MEDS ORDERED: CHLORDIAZEPOXIDE 25MG PREPK#6 BTL TAKEHOME ONE (22:48)
[2018-11-03 00:19] VITALS: BP 142/89
== END 2018-11-03 00:18 | disposition home or self-care (01) ==
LOC: EDUNIT#
DX: F10.920 Alcohol use, unspecified with intoxication, uncomplicated (principal); Z59.0 Homelessness